=== PATIENT | male | born 1970 | race Caucasian/White ===

== ENCOUNTER → 2019-08-30 06:54 | Outpatient (CLI) | payer OTHER, SELFPAY ==
[2019-08-30 08:54] LABS: Add Manual Diff / Slide Review NO; Basophils Absolute Auto 0 /uL (0-100); Basophils Percent Auto 0.6 % (0-2); Eosinophils Absolute Auto 400 /uL (0-450); Eosinophils Percent Auto 6.5 % (2-4); Hemoglobin 15.7 g/dL (13.5-17.5); Lymphocytes Absolute Auto 2300 /uL (1100-4500); Lymphocytes Percent Auto 39.8 % (25-40); Mean Corpuscular HGB Conc 34.8 % (30-36); Mean Corpuscular Hemoglobin 31.6 PG (26-34); Mean Corpuscular Volume 90.8 fL (80-100); Monocytes Absolute Auto 500 /uL (0-900); Monocytes Percent Auto 8.9 % (3-14); Neutrophils Absolute Auto 2600 /uL (1500-7000); Neutrophils Percent Auto 44.2 % (50-75); Platelet Count 211 X10^3/uL (150-400); Red Blood Cell Count 4.96 X10^6/uL (4.5-5.9); Red Cell Distribution Width 13.2 % (11.6-14.8); White Blood Cell Count 5.8 X10^3/uL (4.5-11.0)
[2019-08-30 09:08] LABS: Alanine Aminotransferase 29 IU/L (<50); Albumin 4.9 g/dL (3.5-5.0); Albumin Globulin Ratio 1.8 (1.0-2.8); Alkaline Phosphatase 52 U/L (38-126); Aspartate Aminotransferase 26 IU/L (17-59); Bilirubin Total 1.2 mg/dL (0.2-1.3); Blood Urea Nitrogen 18 mg/dL (9-20); Calcium 10.2 mg/dL (8.4-10.2); Carbon Dioxide 27 mmol/L (22-32); Chloride 105 mmol/L (98-107); Cholesterol 198 mg/dL (140-199); Estimated Glomerular Filt Rate > 60.0 mL/min (>60); Globulin 2.7 g/dL (1.7-4.1); Glucose 94 mg/dL (70-100); HDL Cholesterol 56 mg/dL (40-60); HEMOLYSIS < 15 (0-50); LDL Cholesterol Calculated 119 mg/dL (<100); Potassium 4.4 mmol/L (3.4-5.1); Sodium 143 mmol/L (137-145); Total Protein 7.6 g/dL (6.3-8.2); Triglycerides 113 mg/dL (35-150)
[2019-08-30 09:20] LABS: Free T3, Triiodothyronine Free 3.84 pg/mL (2.77-5.27); Free T4, Direct Thyroxine 1.06 ng/dL (0.78-2.19)
[2019-08-30 09:34] LABS: Thyroid Stimulating Hormone 1.84 uIU/mL (0.47-4.68)
[2019-08-30 09:35] LABS: Prostate Specific Antigen Scrn 1.53 ng/mL (0.1-4.0)
== END ==
PROVIDERS: PCP Nurse Practitioner; Visit Provider Nurse Practitioner
DX: Z00.00 Encounter for general adult medical examination without abnormal findings (principal); Z12.5 Encounter for screening for malignant neoplasm of prostate; Z80.42 Family history of malignant neoplasm of prostate
CPT/HCPCS: 36415; 80053; 80061; 84439; 84443; 84481; 85025; G0103

== ENCOUNTER → 2020-12-22 15:26 | Outpatient (CLI) | payer OTHER, SELFPAY ==
[2020-12-22 16:36] LABS: COVID19 -Nasal RAPID Negative (Negative)
== END ==
PROVIDERS: PCP Nurse Practitioner; Visit Provider Physician Assistant
DX: Z20.822 Contact with and (suspected) exposure to COVID-19 (principal)
CPT/HCPCS: 87635

== ENCOUNTER → 2021-01-02 08:50 | Outpatient (CLI) | payer OTHER, SELFPAY ==
[2021-01-02] MEDS: COVID-19 VACC #1, MRNA(MOD) 100 MCG/0.5 ML VIAL IM (08:54)
== END ==
PROVIDERS: PCP Nurse Practitioner; Visit Provider Internal Medicine
DX: Z23 Encounter for immunization (principal)
CPT/HCPCS: 0011A; 91301

== ENCOUNTER → 2021-01-30 08:34 | Outpatient (CLI) | payer OTHER, SELFPAY ==
[2021-01-30] MEDS: COVID-19 VACC #2, MRNA(MOD) 100 MCG/0.5 ML VIAL IM (08:43)
== END ==
PROVIDERS: PCP Nurse Practitioner; Visit Provider Internal Medicine
DX: Z23 Encounter for immunization (principal)
CPT/HCPCS: 0012A; 91301

== ENCOUNTER → 2021-02-10 10:06 | Outpatient (CLI) | payer OTHER, SELFPAY ==
[2021-02-10 12:25] LABS: COVID19 -Nasal RAPID Negative (Negative)
== END ==
PROVIDERS: PCP Nurse Practitioner; Visit Provider Surgery
DX: Z20.822 Contact with and (suspected) exposure to COVID-19 (principal)
CPT/HCPCS: 87635; C9803

== ENCOUNTER 2021-02-11 06:48 | Day surgery (SDC) | payer OTHER, SELFPAY ==
[2021-02-11 07:19] VITALS: BP 154/98; PULSE 101; RESP 16; TEMP 36.7; O2SAT 100; BMI 24.9
--- NOTE | 2021-02-11 07:26 | PM.HP.1 ---
History of Present Illness History of Present Illness Date Patient Seen: 02/11/21 Time Patient Seen: 07:26 [place] [facility] [place]: Direct access for screening colonoscopy for colon cancer. no symptoms, no family history for colon cancer. This is his first colonoscopy Patient History Medical History Allergies (~1989) Chicken pox (~1970) Hay fever Hearing loss Left knee pain Tinnitus Vision disorder Surgical History Anesthesia History of blepharitis History of eye surgery (~1967) Family & Social History Family History Father Cancer Mother No problems noted. Grandfather Cancer Grandmother Stroke Grandfather Cancer Grandmother History of heart disease Tobacco & Substance use: Smoking Status Never smoker Meds Home Medications and Allergies Home Medications Medication Instructions Recorded Confirmed Type varicella-zoster glycoE [id number] 0.5 ml IM ONCE #1 each 07/28/19 09/12/19 Rx adj(PF) 50 mcg/0.5 mL IM susp, kit neomycin-polymyxin 1 applictn TOP QID #15 gram 09/12/19 09/12/19 Rx Z-gwvirfdift-hqewsgvaylvncg 1 % top ointment Allergies Allergy/AdvReac Type Severity Reaction Status Date / Time No Known Drug Allergies Allergy Verified 02/11/21 07:11 Review of Systems Review of Systems Narrative: no cough ROS: Yes All systems reviewed with the patient and are negative except as otherwise documented Exam Const General: cooperative and healthy appearing [facility] Head: normal to inspection Eyes Alignment and Position: alignment normal Sclera: sclerae normal Neck Neck: trachea midline Chest Chest: normal inspection of the chest Resp Effort & Inspection: normal respiratory effort and able to speak in complete sentences Auscultation: clear to auscultation bilaterally Cardio Rate: regular rate Rhythm: regular rhythm GI Inspection: normal to inspection Palpation: soft Skin General: no rashes or lesions noted Trauma: no lacerations or abrasions Wounds: no wounds Hair: normal Neuro General: patient alert and patient oriented x3 Extrem General: normal to inspection and full ROM Psych Judgment: judgment good Objective ECG Impression: colon cancer screening with colonoscopy under moderate sedation Assessment & Plan Assessment & Plan narrative: Colonoscopy with biopsy if appropriate COVID-19 COVID-19 status: Negative Time Spent With Patient Time with patient: 15-24 minutes
[2021-02-11] MEDS: LACTATED RINGERS 1,000 ML 42 ML IV (07:39)
[2021-02-11] MEDS: MIDAZOLAM 5 MG/5 ML VIAL IV (07:50)
[2021-02-11] MEDS: fentaNYL 250 MCG/5 ML INJ IV (07:50)
[2021-02-11 08:13] VITALS: BP 120/80; PULSE 94; RESP 11; TEMP 36.5; O2SAT 96
--- NOTE | 2021-02-11 08:13 | PM.OP.1 ---
Operative Date/Time/Diagnoses Date of procedure: 02/11/21 Time of procedure: 08:14 Pre-op diagnosis: colon cancer screening Post-op diagnosis: same Procedure & Clinicians Procedure: colonoscopy w moderate sedation Same procedure as scheduled: Yes Indications: screening Surgeon: Elas Gamble Click Yes if Unassisted: No Anesthesia Type: Sedation Operative Notes Findings: normal colon Specimen(s): none sent Estimated Blood Loss (mL): 0 Blood products transfused: none Procedure in detail: Preop diagnosis: Colon cancer screening Postop diagnosis: Same Operative procedure: Colonoscopy with moderate sedation Surgeon: Sayra Gamble MD Anesthetic: Fentanyl and Versed, see nurse's note for dosing. Findings: No polyps, no diverticulosis Procedure: Patient placed in lateral position. Rectal exam performed showing normal tone no masses. Prostate normal exam as well. Scope was inserted into the rectum and advanced to the ileocecal valve with minimal difficulty. Bowel prep was excellent. Insufflation and extraction of the scope including a retroflex in the rectum was performed. Findings: colon no polyps, no diverticulosis. Plan: Repeat colonoscopy in 10 years unless otherwise indicated by change in clinical condition or family history. Complications: none Post-operative Condition: stable Disposition: PACU Plan for aftercare: Home w driving
[2021-02-11 08:18] VITALS: BP 116/78; PULSE 63; RESP 12; O2SAT 96
[2021-02-11 08:24] VITALS: BP 114/79; PULSE 62; RESP 11; O2SAT 96
[2021-02-11 08:28] VITALS: BP 118/85; PULSE 73; RESP 12; TEMP 36.5; O2SAT 96
[2021-02-11 08:39] VITALS: BP 116/72; PULSE 66; RESP 16; TEMP 36.7; O2SAT 100
== END 2021-02-11 08:50 | disposition home or self-care (01) ==
PROVIDERS: PCP Nurse Practitioner; Referring Provider Surgery; Visit Provider Surgery
PROC: 0DJD8ZZ Inspection of Lower Intestinal Tract, Via Natural or Artificial Opening Endoscopic (ICD-10-PCS; CPT 45378; principal; 2021-02-11 07:45)
DX: Z12.11 Encounter for screening for malignant neoplasm of colon (principal)
CPT/HCPCS: 45378; J2250; J3010